=== PATIENT | male | born 1970 | race Two or more races ===

== ENCOUNTER → 2024-07-04 | Outpatient (CLI) | payer MEDICAID, SELFPAY ==
--- NOTE | 2024-07-04 13:30 | XR_ITS ---
Examination: MRI abdomen with intravenous contrast. MRI abdomen without intravenous contrast. 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 Transverse images, TR 6020, TE 107. T1 weighted transverse images, TR 582, TE 9.5. T2-weighted sagittal images, TR 4000, TE 105. T2-weighted sagittal images, TR 4000, TE 5. Coronal images, TR 4210, TE 107. Axial and coronal images are obtained post 20 cc intravenous injection, gadolinium. Findings: Tiny left lobe liver cyst No gallstones Spleen not enlarged No pancreatic or adrenal mass Precontrast images demonstrate marginated solid mass lower pole left kidney 8.2 x 9.4 cm Postcontrast images demonstrate irregular abnormal at this renal tumor The portal vein is patent with thrombus in the portal vein or inferior vena cava No pericaval periaortic lymphadenopathy No ascites No right renal mass IMPRESSION: Enhancing lower pole left renal tumor 8.2 x 9.4 cm
== END | disposition home or self-care (01) ==
LOC: SMRI 07-09 08:48
PROVIDERS: PCP Family Medicine; Referring Provider Urology; Visit Provider Urology
DX: D49.512 Neoplasm of unspecified behavior of left kidney (principal); C64.2 Malignant neoplasm of left kidney, except renal pelvis
CPT/HCPCS: 74183; A9579

== ENCOUNTER → 2024-08-31 | Outpatient (CLI) | payer MEDICAID, SELFPAY ==
--- NOTE | 2024-08-31 14:36 | XR_ITS ---
Examination: Bilateral wrists 6 views TECHNIQUE: AP oblique lateral each wrist total 6 views Exam date and time: August 31, 2024 1452 hours INDICATIONS: Bilateral hand and wrist pain years FINDINGS: Old deformities at the bases of the right fourth and fifth metacarpals Mild osteopenia No fracture acute involving either wrist No avascular necrosis No erosive arthritis IMPRESSION: Old deformities of the bases of the right fourth and fifth metacarpals No acute fractures Mild osteopenia
--- NOTE | 2024-08-31 14:36 | XR_ITS ---
Examination: Bilateral hands, 6 views. Technique: AP, Oblique, Lateral each hand total 6 views Date and time of exam: August 31, 2024 at 1443 hours INDICATIONS: Bilateral hand and wrist pain years, carpal tunnel surgery 4 months ago Findings: Mild juxta-articular bone demineralization No fracture or dislocation involving either hand Old deformity at the bases of the right fourth and fifth metacarpals No erosive arthritis No cortical bone destruction No opaque foreign bodies IMPRESSION: Mild juxta-articular bone demineralization Old deformities of the bases of the right fourth and fifth metacarpals No erosive or other significant arthritic change
== END | disposition home or self-care (01) ==
DX: M25.842 Other specified joint disorders, left hand (principal); M25.841 Other specified joint disorders, right hand; M85.89 Other specified disorders of bone density and structure, multiple sites
CPT/HCPCS: 73110; 73130